=== PATIENT | female | born 1955 | race Caucasian/White ===

== ENCOUNTER 2016-09-29 12:26 | Day surgery (SDC) | payer OTHER ==
[~2016-09-29] VITALS: Ht 152.4 cm; Wt 72.3 kg
[~2016-09-29 12:26] MED LIST: CIPR500T4 PO
[2016-09-29] MEDS ORDERED: MAGNESIUM (13:08)
[2016-09-29] MEDS ORDERED: SIMVASTATIN (13:08)
[2016-09-29 13:10] VITALS: Ht 152.4 cm; Wt 72.3 kg
[2016-09-29 13:29] VITALS: BP 152/80; PULSE 69; RESP 18
[2016-09-29] MEDS ORDERED: FENTAnyl 50 MCG/ML VIAL ONE (14:27)
[2016-09-29] MEDS ORDERED: MIDAZOLAM 1 MG/ML 2 ML INJ ONE (14:27)
[2016-09-29 14:52] VITALS: BP 108/62; RESP 20
--- NOTE | 2016-09-30 02:51 | GILP ---
DATE OF PROCEDURE: NAME OF PROCEDURE: Colonoscopy. SURGEON: Peter Moore MD PREOPERATIVE DIAGNOSIS: Screening colonoscopy. POSTOPERATIVE DIAGNOSES 1. Colonoscopy all the way to the cecum. 2. Internal hemorrhoids. 3. No colon neoplasm was identified. INDICATION FOR THE PROCEDURE: Ms. Larissa Pack is a 61-year-old female patient who was scheduled for screening colonoscopy. The procedure and possible complications are well explained to the patient. The patient understood and consented to the procedure. DESCRIPTION OF PROCEDURE: Under the influence of fentanyl and Versed, the colonoscope was carefully introduced in the rectum and under direct vision, it was advanced all the way to the cecum. FINDINGS: The patient had internal hemorrhoids. No colon neoplasm was identified. She tolerated the procedure very well and there was no complication from the procedures. At the end of the procedures, she was awake with stable vital signs and she was discharged home to the care of her family. IMPRESSION: 1. Colonoscopy all the way to the cecum. 2. Internal hemorrhoids. 3. No colon neoplasm was identified. PLAN: Next screening colonoscopy in 10 years. Dictated By: PETER GIL/TIO Conf#: [id number] DID#: [id number]
== END 2016-09-29 15:10 | disposition home or self-care (01) ==
LOC: GIL 12:26
PROVIDERS: ATTEND Internal Medicine Gastroenterology
DX: Z12.11 Encounter for screening for malignant neoplasm of colon (principal); K64.8 Other hemorrhoids
CPT/HCPCS: 45378; J2250; J3010; Z7610

== ENCOUNTER 2017-04-11 18:58 | Inpatient (IN) | payer OTHER ==
[~2017-04-11] VITALS: Ht 162.6 cm; Wt 73.0 kg
[~2017-04-11 18:58] MED LIST changes: -CIPR500T4 PO; +MAGNESIUM; +SIMVASTATIN
[2017-04-11 22:16] LABS: URINE BLOOD (Dip) POC 3+ (NEGATIVE)
[2017-04-11] MEDS ORDERED: SOD CHLORIDE 0.9% 500 ML IV STA (22:23)
[2017-04-11 22:56] LABS: BASOPHILS % 0.1 % (0.0-2.0); HEMATOCRIT 38.1 % (37.0-47.0); HEMOGLOBIN 12.8 g/dl (12.0-16.0); LYMPHOCYTES # 1.9 10^3/ul (0.8-2.9); MEAN CORPUSCULAR HEMOGLOBIN 27.7 pg (29.0-33.0); MEAN CORPUSCULAR HGB CONC 33.6 g/dl (32.0-37.0); MEAN CORPUSCULAR VOLUME 82.5 fl (82.0-101.0); MEAN PLATELET VOLUME 9.7 fl (7.4-10.4); MONOCYTE # 0.6 10^3/ul (0.3-0.9); MONOCYTES % 4.6 % (0.0-11.0); NEUTROPHILS % 80.9 % (39.0-77.0); PLATELET COUNT 309 10^3/UL (140-415); RED BLOOD COUNT 4.62 10^6/ul (4.20-5.40); RED CELL DISTRIBUTION WIDTH 14.6 % (11.5-14.5); WHITE BLOOD COUNT 13.5 10^3/ul (4.8-10.8)
[2017-04-11] MEDS ORDERED: SIMV20TA PO (23:03)
[2017-04-11] MEDS ORDERED: MAGN400T28 PO (23:03)
[2017-04-11] MEDS ORDERED: MULTI PO (23:03)
[2017-04-11 23:07] LABS: ADD UMIC YES; UR ASCORBIC ACID NEGATIVE (NEGATIVE); UR BACTERIA FEW /HPF (NONE SEEN); UR BILIRUBIN (Dip) NEGATIVE (NEGATIVE); UR BLOOD (Dip) 3+ mg/dL (NEGATIVE); UR CLARITY SLIGHTLY CLOUDY (CLEAR); UR COLOR YELLOW (YELLOW); UR GLUCOSE (Dip) NEGATIVE (NEGATIVE); UR KETONES (Dip) NEGATIVE (NEGATIVE); UR LEUKOCYTE ESTERASE (Dip) 3+ Leu/ul (NEGATIVE); UR MUCUS FEW /HPF (NONE SEEN); UR NITRITE (Dip) NEGATIVE (NEGATIVE); UR RBC 12 /HPF (0-5); UR SQUAMOUS EPITHELIAL CELL FEW /HPF (FEW); UR TOTAL PROTEIN (Dip) NEGATIVE (NEGATIVE); UR UROBILINOGEN (Dip) NEGATIVE (NEGATIVE)
[2017-04-11 23:18] LABS: ALANINE AMINOTRANSFERASE 34 IU/L (13-69); ALBUMIN 4.4 g/dl (3.3-4.9); ALBUMIN/GLOBULIN RATIO 1.07; ALKALINE PHOSPHATASE 84 IU/L (42-121); ANION GAP 18 (8-16); ASPARTATE AMINO TRANSFERASE 29 IU/L (15-46); BILIRUBIN,INDIRECT 0.5 mg/dl (0-1.1); BILIRUBIN,TOTAL 0.5 mg/dl (0.2-1.3); BLOOD UREA NITROGEN 12 mg/dl (7-20); CALCIUM 9.1 mg/dl (8.4-10.2); CARBON DIOXIDE 28 mmol/L (21-31); CHLORIDE 96 mmol/L (97-110); CREATININE 0.64 mg/dl (0.44-1.00); GLUCOSE 129 mg/dl (70-220); POTASSIUM 3.4 mmol/L (3.5-5.1); SODIUM 139 mmol/L (135-144); TOTAL PROTEIN 8.5 g/dl (6.1-8.1)
--- NOTE | 2017-04-11 23:19 | RADRPT ---
PROCEDURE: XR Chest. CLINICAL INDICATION: Chest pain. Abdominal pain TECHNIQUE: Portable AP upright view of the chest was obtained. COMPARISON: None available. FINDINGS: The cardiomediastinal silhouette is within normal limits. The lungs are clear. There is no evidenc e for pleural effusion, pneumothorax or pulmonary vascular congestion. The osseous structures are i ntact with no evidence for acute abnormality. No evidence of free air below the diaphragm RPTAT:HJJR IMPRESSION: No evidence for acute intrathoracic pathology. Physician Safia Date Time Electronically viewed and signed by Physician Safia on 04/11/2017 23:19 /
--- NOTE | 2017-04-11 23:26 | RADRPT ---
PROCEDURE: CT abdomen and pelvis without contrast. CLINICAL INDICATION: Abdominal pain with nausea and vomiting TECHNIQUE: CT scan of the abdomen and pelvis without contrast was performed. Sagittal and coronal reformatted images were obtained from the axial source images. CTDI = 13.84 mGy; DLP = 738.45 mGy-c m COMPARISON: CT 04/07/1916 FINDINGS: Visualized lower thorax: Mild scattered foci of subsegmental atelectasis are present. The visualiz ed heart is mildly enlarged. There is no evidence for pleural effusion. Liver, gallbladder, pancreas and spleen: Mild hepatomegaly of 19 cm is again seen with hepatic stea tosis but preserved liver contour. There is no evidence for a liver mass or ductal dilatation. The gallbladder is unremarkable. No common bile duct abnormality is demonstrated. The pancreas is unr emarkable. The spleen is normal in size. Adrenal glands and genitourinary system: The adrenal glands are normal bilaterally. The left kidney is unremarkable. A simple cyst of the anterior right renal cortex is again demonstrated. Mild rig ht hydronephrosis is demonstrated, the previously seen right intrarenal calculus is not present in t he same location. The left ureter is unremarkable. There is some mild right hydroureter traceable to a a distal right ureteral calculus that is approximately 3 x 3 mm (series 3 image 136). The dist al right ureteral calculus is an estimated 1.7 cm above the right ureteral vesicle junction. No uri nary bladder abnormality is demonstrated. Small punctate calcification within the anterior uterine corpus is likely an incidental leiomyoma. There is no evidence of ovarian or adnexal mass. Gastrointestinal system: The stomach is normal in caliber with no abnormality of significance. The small bowel is normal in caliber with no ileus, obstruction or wall thickening. The appendix and s urrounding fat are within the limits of normal. The colon shows no evidence for wall thickening or acute abnormality. There is no evidence for colitis or diverticulitis. Peritoneum, retroperitoneum, lymph nodes and vessels: The abdominal aorta is normal in caliber. The re is mild iliac atherosclerotic calcification. The inferior vena cava is unremarkable. There is n o evidence for adenopathy or mass. There is no ascites. Osseous structures and musculoskeletal findings: There is no fracture, lytic or blastic lesion. No muscular abnormality or soft tissue pathology is present. RPTAT:HJJR IMPRESSION: 1. Compared to the previous study of 07/16/2016, now demonstrated is mild right hydroureteronephros is traceable to a 3 x 3 mm calculus that has moved into the distal ureter from the right upper pole since the prior exam. The stone is located an estimated 2 cm above the right ureterovesical junctio n. 2. Stable hepatic steatosis and mild hepatomegaly. 3. Simple cyst of the right kidney unchanged. 4. Small incidental calcified uterine leiomyoma. Physician Safia Date Time Electronically viewed and signed by Manuel Briscoe Physician on 04/11/2017 23:25 /
[2017-04-11 23:36] LABS: TROPONIN-I < 0.012 ng/ml (0.00-0.12)
[2017-04-12] MEDS ORDERED: HYDROmorphONE 1 MG/ML SYG IV STA (00:35)
[2017-04-12] MEDS ORDERED: ONDANSETRON 4 MG INJ IV STA (00:35)
[2017-04-12] MEDS ORDERED: KETOROLAC 30 MG INJ IV STA (00:35)
[2017-04-12] MEDS ORDERED: ONDANSETRON 4 MG INJ ONE (00:39)
[2017-04-12] MEDS ORDERED: ACETAMINOPHEN 325 MG TAB ONE (00:39)
[2017-04-12] MEDS ORDERED: ACETAMINOPHEN 325 MG TAB PO PRN (01:00)
[2017-04-12] MEDS ORDERED: CEFTRIAXONE 1 GM/50 ML (PMX) 50 ML IVPB ONE (01:30)
--- NOTE | 2017-04-12 03:28 | ERA ---
ER Documentation Chief Complaint Date/Time DATE: 04/12/17 TIME: 03:27 Chief Complaint Right abd pain, +n/v HPI 61-year-old female right-sided abdominal pain for the past 2-3 days. Radiating to flank. Positive nausea and vomiting. Vomiting nonbilious and nonbloody. Pain mild to moderate in intensity. Mild fever noted at home. No chills. Patient also complaining of dysuria intermittently for the past 2 days. ROS All systems reviewed and are negative except as per history of present illness. Medications Home Meds Reported Medications Magnesium Oxide* (Magnesium Oxide*) 400 Mg Tablet, 400 MG PO DAILY, TAB 04/11/17 Simvastatin* (Zocor*) 20 Mg Tablet, 20 MG PO QHS, #30 TAB 04/11/17 Multivitamins* (Theragran*) 1 Tab Tab, 1 TAB PO DAILY, TAB 04/11/17 Discontinued Reported Medications [Magnesium] No Conflict Check 09/29/16 [Simvastatin] No Conflict Check 09/29/16 Allergies Allergies: Coded Allergies: No Known Allergy (Unverified , 04/11/17) PMhx/Soc History of Surgery: Yes (hysterectomy) Anesthesia Reaction: No Hx Neurological Disorder: No Hx Respiratory Disorders: No Hx Cardiac Disorders: Yes (HYPERLIPIDEMIA, htn) Hx Psychiatric Problems: No Hx Miscellaneous Medical Probl: No Hx Alcohol Use: No Hx Substance Use: No Hx Tobacco Use: No Smoking Status: Never smoker Physical Exam Vitals Vital Signs Date Time Temp Pulse Resp B/P Pulse Ox O2 Delivery O2 Flow Rate FiO2 04/12/17 00:35 100.5 88 22 157/86 97 Room Air 04/11/17 23:30 68 18 141/67 95 Room Air 04/11/17 22:40 99.3 86 18 137/68 96 Room Air 04/11/17 19:40 101.9 96 18 157/71 96 Physical Exam Const: [] Head: Atraumatic Eyes: Normal Conjunctiva ENT: Normal External Ears, Nose and Mouth. Neck: Full range of motion..~ No meningismus. Resp: Clear to auscultation bilaterally Cardio: Regular rate and rhythm, no murmurs Abd: Soft, non tender, non distended. Normal bowel sounds Skin: No petechiae or rashes Back: No midline or flank tenderness Ext: No cyanosis, or edema Neur: Awake and alert Psych: Normal Mood and Affect Result Diagram: 04/11/17221204/11/173 Results 24 hrs Laboratory Tests Test 04/11/17 22:13 04/11/17 22:22 04/11/17 22:40 White Blood Count 13.510^3/ul Red Blood Count 4.6210^6/ul Hemoglobin 12.8g/dl Hematocrit 38.1% Mean Corpuscular Volume 82.5fl Mean Corpuscular Hemoglobin 27.7pg Mean Corpuscular Hemoglobin Concent 33.6g/dl Red Cell Distribution Width 14.6% Platelet Count 86523^3/UL Mean Platelet Volume 9.7fl Neutrophils % 80.9% Lymphocytes % 14.0% Monocytes % 4.6% Eosinophils % 0.0% Basophils % 0.1% Nucleated Red Blood Cells % 0.0/100WBC Neutrophils # (Manual) 11.010^3/ul Lymphocytes # 1.910^3/ul Monocytes # 0.610^3/ul Eosinophils # 0.010^3/ul Basophils # 0.010^3/ul Nucleated Red Blood Cells # 0.010^3/ul Sodium Level 139mmol/L Potassium Level 3.4mmol/L Chloride Level 96mmol/L Carbon Dioxide Level 28mmol/L Anion Gap 18 Blood Urea Nitrogen 12mg/dl Creatinine 0.64mg/dl Glucose Level 129mg/dl Calcium Level 9.1mg/dl Total Bilirubin 0.5mg/dl Direct Bilirubin 0.00mg/dl Indirect Bilirubin 0.5mg/dl Aspartate Amino Transf (AST/SGOT) 29IU/L Alanine Aminotransferase (ALT/SGPT) 34IU/L Alkaline Phosphatase 84IU/L Troponin I < 0.012ng/ml Total Protein 8.5g/dl Albumin 4.4g/dl Globulin 4.10g/dl Albumin/Globulin Ratio 1.07 Lipase 59U/L Bedside Urine pH (LAB) 6.0 Bedside Urine Protein (LAB) Negative Bedside Urine Glucose (UA) Negative Bedside Urine Ketones (LAB) Negative Bedside Urine Blood 3+ Bedside Urine Nitrite (LAB) Negative Bedside Urine Leukocyte Esterase (L 3+ Urine Color YELLOW Urine Clarity SLIGHTLY CLOUDY Urine pH 6.0 Urine Specific [place] 1.010 Urine Ketones NEGATIVEmg/dL Urine Nitrite NEGATIVEmg/dL Urine Bilirubin NEGATIVEmg/dL Urine Urobilinogen NEGATIVEmg/dL Urine Leukocyte Esterase 3+[place]/ul Urine Microscopic RBC 12/HPF Urine Microscopic WBC 60/HPF Urine Squamous Epithelial Cells FEW/HPF Urine Bacteria FEW/HPF Urine Mucus FEW/HPF Urine Hemoglobin 3+mg/dL Urine Glucose NEGATIVEmg/dL Urine Total Protein NEGATIVEmg/dl Current Medications Medications (Trade) Dose Ordered Sig/Tania Route PRN Reason Start Time Stop Time Status Last Admin Dose Admin Sodium Chloride (NS) 500 ml @ 500 mls/hr Q1H STAT IV 04/11/17 22:23 04/11/17 23:22 DC 04/11/17 22:40 Acetaminophen (Tylenol Tab) 650 mg ONCE PRN PO fever 04/12/17 01:00 04/12/17 01:01 DC 04/12/17 00:53 Hydromorphone HCl (Dilaudid) 0.5 mg ONCE STAT IV 04/12/17 00:35 04/12/17 00:48 DC 04/12/17 00:54 Ondansetron HCl (Zofran Inj) 4 mg ONCE STAT IV 04/12/17 00:35 04/12/17 00:48 DC 04/12/17 00:53 Ketorolac Tromethamine (Toradol) 30 mg ONCE STAT IV 04/12/17 00:35 04/12/17 00:48 DC 04/12/17 00:53 Ondansetron HCl (Zofran Inj) 4 mg STK-MED ONCE .ROUTE 04/12/17 00:39 04/12/17 00:40 DC Acetaminophen 325 mg 325 mg STK-MED ONCE .ROUTE 04/12/17 00:39 04/12/17 00:40 DC Ceftriaxone Sodium (Rocephin) 50 ml @ 100 mls/hr ONCE ONCE IVPB 04/12/17 01:30 04/12/17 01:59 DC 04/12/17 02:25 Procedures/MDM EKG: Rate/Rhythm: [Normal Sinus Rhythm] QRS, ST, T-waves: [No changes consistent w/ acute ischemia] Impression: [No evidence of ischemia or arrhythmia] Chest X-ray 1V Interpreted by me: Soft Tissue: No acute abnormalities Bones: No acute abnormalities Mediastinum/Cardiac Silhouette/Lungs: [No acute abnormalities] Medical decision making: Patient has evidence of urinary tract infection, is febrile, also has obstructive stone. This is concerning for an infected kidney stone. Patient will be admitted to hospitalist with urology consult Dr. Martin. Patient started on broad-spectrum antibiotics in the emergency department. Departure Diagnosis: Primary Impression: Kidney stone Condition: Serious HUSAM ANDRE Apr 12, 2017 03:28
[2017-04-12 04:20] VITALS: TEMP 97.8
[2017-04-12 05:12] VITALS: Ht 162.6 cm; Wt 73.0 kg
[2017-04-12 05:13] VITALS: BP 137/71; PULSE 64; RESP 18
[2017-04-12] MEDS ORDERED: VANCOMYCIN IV PER PHARMACY XX SCH (05:30)
[2017-04-12] MEDS ORDERED: HYDROCODONE/APAP (5/325) TAB PO PRN (05:30)
[2017-04-12] MEDS ORDERED: morphine 4 MG/ML VIAL IV PRN (05:30)
[2017-04-12] MEDS ORDERED: ONDANSETRON 4 MG INJ IV PRN (05:30)
[2017-04-12] MEDS: SOD CHLORIDE 0.9% 1,000 ML IV SCH ×3 (06:21→23:48)
--- NOTE | 2017-04-12 06:39 | HP ---
Date/Time of Note Date/Time of Note DATE: 04/12/17 TIME: 06:33 Assessment/Plan VTE Prophylaxis VTE Prophylaxis Intervention: heparin Lines/Catheters IV Catheter Type (from Nrs): Saline Lock Assessment/Plan Assessment/Plan 1. Sepsis, secondary to infected distal ureteral stone -IV antibiotic -IV fluids -Follow-up culture results -Urology and ID consult 2. History of dyslipidemia -Continue Zocor HPI/ROS Admit Date/Time Admit Date/Time Apr 12, 2017 at 03:40 Hx of Present Illness This is a 61-year-old female with a history of right kidney stone and dyslipidemia who presented to emergency department complaining of abdominal pain and right flank pain. She also reports that subjective fever and nausea but no vomiting. Denied chest pain or shortness of breath. When she presented to the ER, she was febrile with a temperature of 101.9. Labs shows a WBC of 13.5 and urinalysis was consistent with UTI. CT abdomen/ pelvis shows compared to the previous study of 07/16/2016, now demonstrated is mild right hydroureteronephrosis traceable to a 3 x 3 mm calculus that has moved into the distal ureter from the right upper pole since the prior exam. The stone is located an estimated 2 cm above the right ureterovesical junction. . PMH/Family/Social Past Medical History Medical History: high cholesterol, other (Right kidney stone) Social History Alcohol Use: none Smoking Status: Never smoker Drug Use: none Exam/Review of Systems Vital Signs Vitals Vital Signs Date Time Temp Pulse Resp B/P Pulse Ox O2 Delivery O2 Flow Rate FiO2 04/12/17 05:13 97.7 64 18 137/71 95 Room Air Exam Constitutional: alert, oriented, well developed Head: atraumatic, normocephalic Eyes: EOMI, PERRL Respiratory: clear to auscultation, normal air movement Cardiovascular: nl pulses, regular rate and rhythm Gastrointestinal: soft, tender Extremities: normal pulses Labs Result Diagram: 04/11/17221204/11/172212 Medications Medications Current Medications Cefepime HCl (Maxipime 1gm/50 ml (Pmx)) 50 ml @ 100 mls/hr Q12 IVPB ; Start at 09:00 Morphine Sulfate (morphine) 4 mg Q4H PRN IV PAIN; Start 04/12/17 at 05:30 Acetaminophen/ Hydrocodone Bitart ([place] (5/325)) 1 tab Q4H PRN PO PAIN; Start 04/12/17 at 05:30 Ondansetron HCl 4 mg 4 mg Q6H PRN IV NAUSEA AND/OR VOMITING; Start 04/12/17 at 05:30 Sodium Chloride (NS) 1,000 ml @ 100 mls/hr Q10H IV Last administered on t 06:21; Admin Dose 100 MLS/HR; Start 04/12/17 at 05:30; Stop 04/13/17 at 05: 30 Magnesium Oxide (Mag-Ox 400) 400 mg DAILY PO ; Start 04/12/17 at 09:00 Multivitamins Therapeutic (Theragran) 1 tab DAILY PO ; Start 04/12/17 at 09:00 Atorvastatin Calcium 10 mg 10 mg QHS PO ; Start 04/12/17 at 21:00 Vancomycin HCl/ Sodium Chloride (Vancocin/NS) 250 ml @ 83.333 mls/ hr ONCE IVPB ; Start 04/12/17 at 07:00; Stop 04/12/17 at 09:59 HUSAM DRAKE MD Apr 12, 2017 06:39
[2017-04-12] MEDS ORDERED: VANCOMYCIN 1.5 GM in SOD CHLORIDE 0.9% 250 ML IVPB SCH (07:00)
[2017-04-12 07:37] VITALS: BP 141/67; RESP 16
--- NOTE | 2017-04-12 07:58 | CONS ---
Date/Time of Note Date/Time of Note DATE: 04/12/17 TIME: 07:50 Assessment/Plan Assessment/Plan Chief Complaint/Hosp Course i reviewed the ct scan and she has minimal hydro and minimal dilated ureter no stranding or renal swelling she looks very stable and feels absolutely fine at this time given the tiny size of the stone and very high likelihood of spontaneous passage she should be given an opportunity to pass it she clearly is not septic at this time she should be treated with flomax and antibiotics that will hopefully be directed by a urine culture if she at anytime gets fever or chills i would like to be notified immediately otherwise i would like to see her in my office Problems: Consultation Date/Type/Reason Admit Date/Time Apr 12, 2017 at 03:40 Date of Consultation: Apr 12, 2017 Reason for Consultation stone in ureter on right Hx of Present Illness about 18 hrs ago developed 8/10 rt flank pain and gastric pain and nausea. she thought she had food poising she felt a low grade fever with sweats but no chills no hx of stones came to ER and ct shows 3 mm distal stone since admission no fever or chills and no pain Past Medical History Medical History: high cholesterol, other (Right kidney stone) Social History Alcohol Use: none Smoking Status: Never smoker Drug Use: none Exam/Review of Systems Vital Signs Vitals Vital Signs Date Time Temp Pulse Resp B/P Pulse Ox O2 Delivery O2 Flow Rate FiO2 04/12/17 07:37 98.2 66 16 141/67 95 04/12/17 05:13 Room Air Exam Constitutional: alert, oriented Head: normocephalic Neck: non-tender Respiratory: normal air movement Gastrointestinal: soft Musculoskeletal: nl extremities to inspection Results Result Diagram: 04/11/17 2213 04/11/17 2213 Results 24 hrs Laboratory Tests Test 04/11/17 22:13 04/11/17 22:22 04/11/17 22:40 White Blood Count 13.5 #H Red Blood Count 4.62 Hemoglobin 12.8 Hematocrit 38.1 Mean Corpuscular Volume 82.5 Mean Corpuscular Hemoglobin 27.7 L Mean Corpuscular Hemoglobin Concent 33.6 Red Cell Distribution Width 14.6 H Platelet Count 309 Mean Platelet Volume 9.7 # Neutrophils % 80.9 H Lymphocytes % 14.0 L Monocytes % 4.6 Eosinophils % 0.0 Basophils % 0.1 Nucleated Red Blood Cells % 0.0 Neutrophils # (Manual) 11.0 H Lymphocytes # 1.9 Monocytes # 0.6 Eosinophils # 0.0 Basophils # 0.0 Nucleated Red Blood Cells # 0.0 Sodium Level 139 Potassium Level 3.4 L Chloride Level 96 L Carbon Dioxide Level 28 Anion Gap 18 H Blood Urea Nitrogen 12 Creatinine 0.64 Glucose Level 129 Calcium Level 9.1 Total Bilirubin 0.5 Direct Bilirubin 0.00 Indirect Bilirubin 0.5 Aspartate Amino Transf (AST/SGOT) 29 Alanine Aminotransferase (ALT/SGPT) 34 Alkaline Phosphatase 84 Troponin I < 0.012 Total Protein 8.5 H Albumin 4.4 Globulin 4.10 H Albumin/Globulin Ratio 1.07 Lipase 59 Bedside Urine pH (LAB) 6.0 Bedside Urine Protein (LAB) Negative Bedside Urine Glucose (UA) Negative Bedside Urine Ketones (LAB) Negative Bedside Urine Blood 3+ H Bedside Urine Nitrite (LAB) Negative Bedside Urine Leukocyte Esterase (L 3+ H Urine Color YELLOW Urine Clarity SLIGHTLY CLOUDY A Urine pH 6.0 Urine Specific [place] 1.010 Urine Ketones NEGATIVE Urine Nitrite NEGATIVE Urine Bilirubin NEGATIVE Urine Urobilinogen NEGATIVE Urine Leukocyte Esterase 3+ H Urine Microscopic RBC 12 H Urine Microscopic WBC 60 H Urine Squamous Epithelial Cells FEW Urine Bacteria FEW A Urine Mucus FEW A Urine Hemoglobin 3+ H Urine Glucose NEGATIVE Urine Total Protein NEGATIVE Medications Medications Current Medications Cefepime HCl (Maxipime 1gm/50 ml (Pmx)) 50 ml @ 100 mls/hr Q12 IVPB ; Start at 09:00 Morphine Sulfate (morphine) 4 mg Q4H PRN IV PAIN; Start 04/12/17 at 05:30 Acetaminophen/ Hydrocodone Bitart ([place] (5/325)) 1 tab Q4H PRN PO PAIN; Start 04/12/17 at 05:30 Ondansetron HCl 4 mg 4 mg Q6H PRN IV NAUSEA AND/OR VOMITING; Start 04/12/17 at 05:30 Sodium Chloride (NS) 1,000 ml @ 100 mls/hr Q10H IV Last administered on t 06:21; Admin Dose 100 MLS/HR; Start 04/12/17 at 05:30; Stop 04/13/17 at 05: 30 Magnesium Oxide (Mag-Ox 400) 400 mg DAILY PO ; Start 04/12/17 at 09:00 Multivitamins Therapeutic (Theragran) 1 tab DAILY PO ; Start 04/12/17 at 09:00 Atorvastatin Calcium 10 mg 10 mg QHS PO ; Start 04/12/17 at 21:00 Vancomycin HCl/ Sodium Chloride (Vancocin/NS) 250 ml @ 83.333 mls/ hr ONCE IVPB ; Start 04/12/17 at 07:00; Stop 04/12/17 at 09:59 CAMELIA CHILDERS MD Apr 12, 2017 07:58
[2017-04-12] MEDS: TAMSULOSIN (SR) 0.4 MG CAP PO SCH (08:56)
[2017-04-12] MEDS: MAGNESIUM OXIDE 400 MG TAB PO SCH (08:56)
[2017-04-12] MEDS: MULTIVITAMINS THERAPEUTIC TAB PO SCH (08:56)
[2017-04-12] MEDS: CEFEPIME 1GM/50 ML (PMX) 50 ML IVPB SCH ×3 (09:00→22:20)
[2017-04-12] MEDS ORDERED: POTASSIUM CHLORIDE (SR) 20 MEQ TAB PO STA (09:40)
[2017-04-12] MEDS ORDERED: morphine 2 MG INJ IV PRN (10:30)
[2017-04-12 15:54] VITALS: BP 138/63; RESP 18
[2017-04-12 19:42] VITALS: BP 134/73; RESP 20
[2017-04-12] MEDS: VANCOMYCIN 750 MG in SOD CHLORIDE 0.9% 150 ML IVPB SCH (20:12)
[2017-04-12] MEDS ORDERED: ATORVASTATIN 10 MG TAB PO SCH (21:00)
[2017-04-13] MEDS: SOD CHLORIDE 0.9% 1,000 ML IV SCH (01:30)
[2017-04-13 01:51] VITALS: BP 139/69; RESP 20
[2017-04-13 07:02] LABS: BASOPHILS % 0.1 % (0.0-2.0); EOSINOPHILS % 0.4 % (0.0-7.0); HEMOGLOBIN 12.6 g/dl (12.0-16.0); LYMPHOCYTES # 1.7 10^3/ul (0.8-2.9); LYMPHOCYTES % 19.9 % (15.0-51.0); MEAN CORPUSCULAR HGB CONC 33.2 g/dl (32.0-37.0); MEAN CORPUSCULAR VOLUME 84.4 fl (82.0-101.0); MONOCYTE # 0.6 10^3/ul (0.3-0.9); MONOCYTES % 7.1 % (0.0-11.0); NEUTROPHILS % 72.1 % (39.0-77.0); PLATELET COUNT 284 10^3/UL (140-415); RED CELL DISTRIBUTION WIDTH 14.7 % (11.5-14.5); WHITE BLOOD COUNT 8.5 10^3/ul (4.8-10.8)
[2017-04-13 07:19] LABS: CALCIUM 8.5 mg/dl (8.4-10.2); CREATININE 0.77 mg/dl (0.44-1.00); POTASSIUM 3.8 mmol/L (3.5-5.1)
[2017-04-13 07:22] LABS: MAGNESIUM 1.9 mg/dl (1.7-2.5); PHOSPHORUS 2.6 mg/dl (2.5-4.9)
[2017-04-13 07:38] VITALS: BP 164/77; RESP 18
[2017-04-13] MEDS: VANCOMYCIN 750 MG in SOD CHLORIDE 0.9% 150 ML IVPB SCH (08:37)
--- NOTE | 2017-04-13 09:56 | PDOCDIS ---
Discharge Instructions CONDITION Patient Condition: Stable HOME CARE INSTRUCTIONS: Special Diet: Regular diet ACTIVITY: Activity Restrictions: Slowly Increase Activity FOLLOW UP/APPOINTMENTS Follow-up Plan Please take your medications as prescribed. Please follow-up with her primary doctor in the clinic in the next 1 week. BANG JARRELL Apr 13, 2017 09:56
[2017-04-13] MEDS ORDERED: LEVO750T25 PO (09:58)
[2017-04-13] MEDS ORDERED: HYDR-906 PO (09:58)
[2017-04-13] MEDS ORDERED: ONDA-43 PO (09:58)
[2017-04-13] MEDS ORDERED: TAMS-14 PO (10:02)
--- NOTE | 2017-04-13 10:02 | DS ---
Date/Time of Note Date/Time of Note DATE: 04/13/17 TIME: 09:59 Discharge Summary Admission/Discharge Info Admit Date/Time Apr 12, 2017 at 03:40 Discharge Date/Time Discharge Diagnosis 1. Sepsis: Secondary to UTI improving 2. Renal stone: On conservative management 3. High cholesterol Patient Condition: Stable Hospital Course 61-year-old female with a history of right kidney stone and dyslipidemia who presented to emergency department complaining of abdominal pain and right flank pain. She also reports that subjective fever and nausea but no vomiting. Denied chest pain or shortness of breath.When she presented to the ER, she was febrile with a temperature of 101.9. Labs shows a WBC of 13.5 and urinalysis was consistent with UTI. CT abdomen/pelvis shows compared to the previous study of 07/16/2016, now demonstrated is mild right hydroureteronephrosis traceable to a 3 x 3 mm calculus that has moved into the distal ureter from the right upper pole since the prior exam. The stone is located an estimated 2 cm above the right ureterovesical junction. Patient was admitted to [facility] floor , seen by urology team. She was started on antibiotics, and conservative management was initiated for the kidney stone. Her urine was strained, over the course of her hospital stay her fever subsided, her white count also trended down. Her urine culture showed greater than 100,000 E. coli, and antibiotics were titrated to the sensitivities. Because she is having less pain and less fevers now and her white count is normal she is ambulating, tolerating p.o. diet, she will be discharged home today improved condition. The need to continue antibiotics for 7 more days. See below for full list of discharge medications. Home Meds Active Scripts Hydrocodone/Acetaminophen ([place] 5-325 Tablet) 1 Each Tablet, 1 EACH PO Q6 for 10 Days, TAB Prov:BANG JARRELL S. 04/13/17 Levofloxacin* (Levaquin*) 750 Mg Tablet, 750 MG PO DAILY for 7 Days, TAB Prov:BANG JARRELL S. 04/13/17 Ondansetron Hcl* (Zofran*) 4 Mg Tab, 4 MG PO Q6H Y for NAUSEA AND OR VOMITING for 14 Days, #20 TAB Prov:BANG JARRELL S. 04/13/17 Reported Medications Magnesium Oxide* (Magnesium Oxide*) 400 Mg Tablet, 400 MG PO DAILY, TAB 04/11/17 Simvastatin* (Zocor*) 20 Mg Tablet, 20 MG PO QHS, #30 TAB 04/11/17 Multivitamins* (Theragran*) 1 Tab Tab, 1 TAB PO DAILY, TAB 04/11/17 Discontinued Reported Medications [Magnesium] No Conflict Check 09/29/16 [Simvastatin] No Conflict Check 09/29/16 Primary Care Provider Deandre Younger Time spent on discharge: > 30 minutes Pending Labs Laboratory Tests Test 04/13/17 05:54 04/13/17 05:56 Sodium Level 140mmol/L (135-144) Potassium Level 3.8mmol/L (3.5-5.1) Chloride Level 99mmol/L (97-110) Carbon Dioxide Level 24mmol/L (21-31) Anion Gap 21 (8-16) Blood Urea Nitrogen 12mg/dl (7-20) Creatinine 0.77mg/dl (0.44-1.00) Glucose Level 157mg/dl (70-220) Calcium Level 8.5mg/dl (8.4-10.2) Phosphorus Level 2.6mg/dl (2.5-4.9) Magnesium Level 1.9mg/dl (1.7-2.5) White Blood Count 8.510^3/ul (4.8-10.8) Red Blood Count 4.5010^6/ul (4.20-5.40) Hemoglobin 12.6g/dl (12.0-16.0) Hematocrit 38.0% (37.0-47.0) Mean Corpuscular Volume 84.4fl (82.0-101.0) Mean Corpuscular Hemoglobin 28.0pg (29.0-33.0) Mean Corpuscular Hemoglobin Concent 33.2g/dl (32.0-37.0) Red Cell Distribution Width 14.7% (11.5-14.5) Platelet Count 32728^3/UL (140-415) Mean Platelet Volume 10.0fl (7.4-10.4) Neutrophils % 72.1% (39.0-77.0) Lymphocytes % 19.9% (15.0-51.0) Monocytes % 7.1% (0.0-11.0) Eosinophils % 0.4% (0.0-7.0) Basophils % 0.1% (0.0-2.0) Nucleated Red Blood Cells % 0.0/100WBC (0.0-0.0) Neutrophils # (Manual) 6.210^3/ul (1.7-7.5) Lymphocytes # 1.710^3/ul (0.8-2.9) Monocytes # 0.610^3/ul (0.3-0.9) Eosinophils # 0.010^3/ul (0.0-0.5) Basophils # 0.010^3/ul (0.0-0.1) Nucleated Red Blood Cells # 0.010^3/ul (0.0-0.0) BANG JARRELL Apr 13, 2017 10:02
[2017-04-13] MEDS: TAMSULOSIN (SR) 0.4 MG CAP PO SCH (10:33)
[2017-04-13] MEDS: MULTIVITAMINS THERAPEUTIC TAB PO SCH (10:33)
[2017-04-13] MEDS: MAGNESIUM OXIDE 400 MG TAB PO SCH (10:33)
[2017-04-13] MEDS: CEFEPIME 1GM/50 ML (PMX) 50 ML IVPB SCH (10:35)
[2017-04-13 12:06] VITALS: BP 155/73; PULSE 70; RESP 18
== END 2017-04-13 14:55 | disposition home or self-care (01) | DRG 872 ==
LOC: E/R 18:58 → MS2 04-12 03:40
PROVIDERS: ADMIT Internal Medicine; ATTEND Internal Medicine
DX: A41.9 Sepsis, unspecified organism (principal); N39.0 Urinary tract infection, site not specified; N20.0 Calculus of kidney; E78.00 Pure hypercholesterolemia, unspecified
CPT/HCPCS: 36415; 71010; 74176; 80048; 80053; 81001; 81003; 83690; 83735; 84100; 84484; 85025; 87040; 87086; 93005; 96374; 96375; J0692; J0696; J1170; J1885; J2405; J3370; J7030; J7040; J7050

== ENCOUNTER 2018-12-19 18:26 | Emergency (ER) | payer OTHER ==
[~2018-12-19] VITALS: Ht 152.4 cm; Wt 70.3 kg
[~2018-12-19 18:26] MED LIST changes: +HYDR-4011 PO; +LEVO750T25 PO; +MAGN400T28 PO; -MAGNESIUM; +MULTI PO; +ONDA4TAB13 PO; +SIMV20TA PO; -SIMVASTATIN; +TAMS-14 PO
[2018-12-19 18:31] VITALS: BP 193/88; PULSE 88; RESP 16; Ht 152.4 cm; Wt 70.3 kg
[2018-12-19] MEDS ORDERED: CIPR-193 PO (21:20)
--- NOTE | 2018-12-19 21:20 | ERD ---
ER Documentation Chief Complaint Chief Complaint Pt reports frequent urination since Monday HPI 63-year-old female, with history of hypertension, presents the emergency department, complaining of 3 days with increased urinary frequency, dysuria and pelvic discomfort. The patient denies fever, no chills, no nausea or vomiting, no diarrhea or constipation. The patient has had urinary tract infections in the past and she believes that the symptoms are caused by UTI. ROS All systems reviewed and are negative except as per history of present illness. Medications Home Meds Active Scripts Phenazopyridine Hcl* (Pyridium*) 200 Mg Tab, 200 MG PO TID PRN for URINARY PAIN, #6 TAB Prov:NICOLETTE GREEN MD 12/19/18 Acetaminophen* (Tylenol*) 325 Mg Tablet, 2 TAB PO Q6 PRN for PAIN AND OR ELEVATED TEMP, #20 TAB Prov:NICOLETTE GREEN MD 12/19/18 Ciprofloxacin Hcl* (Ciprofloxacin Hcl*) 250 Mg Tablet, 250 MG PO BID for 5 Days, #10 TAB Prov:NICOLETTE GREEN MD 12/19/18 Tamsulosin Hcl* (Flomax*) 0.4 Mg Cap.er.24h, 0.4 MG PO AM, #30 CAP Prov:BANG JARRELL S. 04/13/17 Hydrocodone/Acetaminophen (Odanah 5-325 Tablet) 1 Each Tablet, 1 EACH PO Q6 for 10 Days, TAB Prov:BANG JARRELL S. 04/13/17 Levofloxacin* (Levaquin*) 750 Mg Tablet, 750 MG PO DAILY for 7 Days, TAB Prov:BANG JARRELL S. 04/13/17 Ondansetron Hcl* (Zofran*) 4 Mg Tab, 4 MG PO Q6H PRN for NAUSEA AND OR VOMITING for 14 Days, #20 TAB Prov:BANG JARRELL S. 04/13/17 Reported Medications Magnesium Oxide* (Magnesium Oxide*) 400 Mg Tablet, 400 MG PO DAILY, TAB 04/11/17 Simvastatin* (Zocor*) 20 Mg Tablet, 20 MG PO QHS, #30 TAB 04/11/17 Multivitamins* (Theragran*) 1 Tab Tab, 1 TAB PO DAILY, TAB 04/11/17 Allergies Allergies: Coded Allergies: No Known Allergy (Unverified , 04/11/17) PMhx/Soc Hypertension and hypercholesterolemia History of Surgery: No (HYSTERECTOMY, BIOPSY) Anesthesia Reaction: No Hx Neurological Disorder: No Hx Respiratory Disorders: No Hx Cardiac Disorders: No Hx Psychiatric Problems: No Hx Miscellaneous Medical Probl: No Hx Alcohol Use: No Hx Substance Use: No Hx Tobacco Use: No FmHx Family History: diabetes Physical Exam Vitals Vital Signs Date Temp Pulse Resp B/P (MAP) Pulse Ox O2 O2 Flow FiO2 Time Delivery Rate 12/19/18 98.5 88 16 193/88 97 18:31 (123) Physical Exam Const: No acute distress Head: Atraumatic Eyes: Normal Conjunctiva ENT: Normal External Ears, Nose and Mouth. Neck: Full range of motion. No meningismus. Resp: Clear to auscultation bilaterally Cardio: Regular rate and rhythm, no murmurs Abd: Soft, non tender, non distended. Normal bowel sounds Skin: No petechiae or rashes Back: No midline or flank tenderness Ext: No cyanosis, or edema Neur: Awake and alert Psych: Normal Mood and Affect Procedures/MDM At the time of discharge, vital signs stable, patient nontoxic, in no distress. Differential diagnosis include but not limited to: UTI, colitis, gastroenteritis, kidney stones, irritable bowel syndrome, inflammatory bowel syndrome, malabsorption syndrome, cholelithiasis, food intolerance, medication side effect, pancreatitis, diverticulitis, bowel obstruction. Low suspicion for acute abdomen Physical examination and clinical presentation consistent most likely with acute cystitis. During the ED course the patient remained stable, no new complaints. Results and clinical impression discussed with patient who agrees with management. The patient is stable to be treated outpatient and will be discharged home, some side effects of prescribed medications (headache, rash, nausea, vomiting, diarrhea, drowsiness, habituation, bleeding, hypertension, interactions with other medications) were reviewed. The patient was instructed to follow up with the primary care provider in the next 48h. If symptoms persist, worsen or new symptoms develop, then patient should return to the ED immediately. Instructions explained and given directly by me to the patient with acknowledgment and demonstrated understanding. Disclaimer: Inadvertent spelling and grammatical errors are likely due to EHR/dictation software use and do not reflect on the overall quality of patient care. Also, please note that the electronic time recorded on this note does not necessarily reflect the actual time of the patient encounter. Departure Diagnosis: Primary Impression: Acute cystitis Condition: Stable Additional Instructions: Muchas latosha por [facility] para alvarez servicio. Esperamos que en alvarez visita a la janna de emergencia alvarez problema medico haya sido solucionado y que se sienta mucho mejor. Para estar seguros que alvarez mejoria sigue en proceso, le pedimos el favor de hacer jordy amada de seguimiento medico con alvarez doctor primario en los proximos 2-4 arita. Lleve con usted estos documentos y las medicinas recetadas. Si malik sintomas empeoran, NO SE ESPERE, por favor regrese a janna de emergencia INMEDIATAMENTE. En leeann que usted no tenga un mdico de atencin primaria: Llame al mdico o clnica comunitaria de referencia que aparece abajo du las horas de consultorio para hacer jordy amada para que le vean. CLINICAS: [facility] [phone] [id number] [facility] [phone] [id number] [facility] [place]. [facility] [phone] [address] [facility]. [facility] [phone] [facility]. [place] [id number] [phone] [facility]. [phone] NICOLETTE ROSALES MD Dec 19, 2018 21:20
[2018-12-19] MEDS ORDERED: ACET325T33 PO (21:21)
[2018-12-19] MEDS ORDERED: PHEN-538 PO (21:21)
== END 2018-12-19 21:22 | disposition home or self-care (01) ==
LOC: E/R 18:26
DX: N30.00 Acute cystitis without hematuria (principal); I10 Essential (primary) hypertension
CPT/HCPCS: 99283

== ENCOUNTER 2019-04-29 08:52 | Emergency (ER) | payer OTHER ==
[~2019-04-29] VITALS: Ht 157.5 cm; Wt 67.4 kg
[~2019-04-29 08:52] MED LIST changes: +ACET325T33 PO; +AMOX1TAB10 PO; +BEN25 PO; +CIPR-193 PO; +PHEN-538 PO; +PRED20TA PO; +SULF1TAB31 PO
[2019-04-29 09:12] VITALS: BP 169/83; PULSE 77; RESP 18; Ht 157.5 cm; Wt 67.4 kg
[2019-04-29] MEDS ORDERED: predniSONE 20 MG TAB PO ONE (10:30)
== END 2019-04-29 10:28 | disposition home or self-care (01) ==
LOC: FTE 08:52
DX: L03.213 Periorbital cellulitis (principal)
CPT/HCPCS: 99283; J7512